=== PATIENT | male | born 1980 | race Caucasian/White ===

== ENCOUNTER 2016-09-23 15:03 | Emergency (ER) | payer SELFPAY ==
[~2016-09-23] VITALS: Ht 167.6 cm; Wt 70.0 kg
[~2016-09-23 15:03] MED LIST: Z.0.NO CURRENT MEDS
[2016-09-23 15:04] VITALS: BP 149/87; PULSE 82; TEMP 98.7; O2SAT 98
--- NOTE | 2016-09-23 15:13 | PD ---
HPI Chief Complaint: Laceration/Skin Injury Time Seen by Provider: 15:12 Travel History International Travel<30 days: No Contact w/Intl Traveler<30days: No Traveled to known affect area: No History of Present Illness HPI 36-year-old male presents to the emergency Department with complaint of laceration to the dorsal aspect of his left hand from a cleaning racer today. Does not know tetanus status. Denies paresthesias, loss of sensation, decreased range of motion, decreased strength to the affected extremity. Has no other medical complaints. Allergies to Augmentin and penicillin. No other modifying factors or associated signs and symptoms. PFSH Past Medical History Autoimmune Disease: No Blood Disorders: No Anxiety: Yes Depression: Yes Cancer: No Chemotherapy: No Diabetes: No Endocrine: No Glaucoma: No Immune Disorder: No Psychiatric: Yes (previous suicidal ideation) Radiation Therapy: No Sickle Cell Disease: No Thyroid Disease: No Past Surgical History Abdominal Surgery: No AICD: No Arteriovenous Shunt: No Cardiac Surgery: No Ear Surgery: Yes (Left, multi tubes & skin graft?) Endocrine Surgery: No Eye Surgery: No Genitourinary Surgery: No Gynecologic Surgery: No Insulin Pump: No Joint Replacement: No Oral Surgery: Yes (cleft lip repair 3 mos, cleft palate 13mos) Pacemaker: No Thoracic Surgery: No Social History Alcohol Use: Yes Tobacco Use: Yes Substance Use: Yes Allergies-Medications (Allergen,Severity, Reaction): Coded Allergies: Augmentin (Verified Allergy, Severe, 07/07/10) Penicillin (Verified Allergy, Severe, 07/07/10) Reported Meds & Prescriptions Reported Meds & Active Scripts Active Ibuprofen 800 Mg Tab 800 Mg PO Q6HR PRN Keflex (Cephalexin) 500 Mg Cap 500 Mg PO Q8H 7 Days Reported No Current Meds (Miscellaneous Medication) [facility] Review of Systems Except as stated in HPI: all other systems reviewed are Neg Physical Exam Narrative GENERAL: Well-nourished, well-developed male patient, in no acute distress SKIN: Warm and dry. Dorsal aspect of left hand just below the fourth and fifth digits with approximately 2 cm laceration. Left hand is with full range of motion and all fingers with sensory intact and full range of motion and good opposition; all fingers with less than 3 second cap refill; full academic affairs specialist strength. Left approximately is supple and non-tense 2+ radial pulses and sensory intact and without erythema or edema. HEAD: Atraumatic. Normocephalic. EYES: Pupils equal and round. No scleral icterus. No injection or drainage. ENT: Mucosa pink and moist. Airway patent. NECK: Trachea midline. CARDIOVASCULAR: Regular rate. RESPIRATORY: No accessory muscle use. GASTROINTESTINAL: Flat. MUSCULOSKELETAL: No obvious deformities. No clubbing. No cyanosis. No edema. NEUROLOGICAL: Awake and alert. Oriented 3. No obvious cranial nerve deficits. Motor grossly within normal limits. Normal speech. PSYCHIATRIC: Appropriate mood and affect; insight and judgment normal. Data Data Last Documented VS Vital Signs Date Time Temp Pulse Resp B/P Pulse Ox O2 Delivery O2 Flow Rate FiO2 09/23/16 15:04 98.7 82 149/87 98 Orders Tetanus/Diphtheria Tox Adult (Tetanus/Di (09/23/16 15:15) Lidocaine 1% Inj (50 Ml) (Xylocaine 1% I (09/23/16 15:15) MDM Medical Decision Making Medical Screen Exam Complete: Yes Emergency Medical Condition: Yes Medical Record Reviewed: Yes Differential Diagnosis Laceration, contusion, abrasion Narrative Course 36-year-old male with laceration to the dorsal aspect of his left hand. See my procedure note for laceration repair. Tetanus updated in the ER. Keflex and ibuprofen prescribed for home. Patient verbalizes understanding and agreement with treatment plan. Patient is medically cleared and stable for discharge. Discussed reasons to return to the emergency department. Instructed patient to follow up with primary care provider. Patient agrees with treatment plan. The patients vital signs are stable and the patient is stable for outpatient follow- up and treatment. Patient discharged home, stable and in no acute distress. Procedures Procedure Narrative LACERATION LOCATION: Dorsal aspect of left hand below the fourth and fifth digits LENGTH: 2 cm NUMBER OF STITCHES/OANH: 3 stitches REPAIR: The area of the laceration was prepped with Betadine and sterilely draped. The laceration was infiltrated with 1% lidocaine. The wound was copiously irrigated and explored without evidence of foreign body, tendon injury or neurovascular injury. The wound was closed using 4-0 Prolene. This was a single layer repair. A sterile dressing was applied. The patient was advised to keep the dressing clean and dry. Patient tolerated the procedure well. Diagnosis Primary Impression: Laceration of left hand Qualified Code: S61.412A - Laceration of left hand, foreign body presence unspecified, initial encounter Referrals: Primary Care Physician Patient Instructions: Care For Your Stitches (ED), General Instructions, Laceration (ED) Departure Forms: Tests/Procedures Additional Instructions: Keep area clean and dry Limit left hand activity to decrease risk of sutures coming undone Ibuprofen or Tylenol as directed nothing for pain and inflammation Ice pack to area as needed to decrease pain Return to the emergency department or follow-up with primary care provider in 7- 10 days for suture removal Follow up with primary care provider within 2-4 days Return to the emergency department immediately with worsening of symptoms, particularly if reddened streaks up or down the affected extremity from the suture site, fever, numbness/tingling in the affected extremity, loss of sensation in the affected extremity, severe swelling of the affected Med/Other Pt SpecificInfo: Prescription(s) given Scripts Ibuprofen 800 Mg [id number] Mg PO Q6HR PRN (PAIN) #30 TAB Ref 0 Prov:Shavon Mcmillan 09/23/16 Cephalexin (Keflex)500 Mg Xgt153 Mg PO Q8H 7 Days Ref 0 Prov:Shavon Mcmillan 09/23/16 Disposition: 01 DISCHARGE HOME Condition: Stable Shavon Mcmillan Sep 23, 2016 15:12
[2016-09-23] MEDS ORDERED: LIDOCAINE HCL 1% 50 ML VIAL INFIL ONE (15:15)
[2016-09-23] MEDS ORDERED: TETANUS/DIPHTHERIA TOXOID ADULT 0.5 ML VIAL IM ONE (15:15)
[2016-09-23] MEDS ORDERED: CEPH-460 PO (15:17)
[2016-09-23] MEDS ORDERED: IBUP800T23 PO (15:17)
== END 2016-09-23 16:46 | disposition home or self-care (01) ==
LOC: NEPK 15:03
DX: Z87.891 Personal history of nicotine dependence (principal); S61.412A Laceration without foreign body of left hand, initial encounter; F41.8 Other specified anxiety disorders; W45.8XXA Other foreign body or object entering through skin, initial encounter; Y93.89 Activity, other specified; Y92.9 Unspecified place or not applicable
CPT/HCPCS: 12001; 90471; 90714